=== PATIENT | male | born 1970 | race Caucasian/White ===

== ENCOUNTER 2017-04-10 19:20 | Emergency (ER) | payer BC ==
[2017-04-10] MEDS ORDERED: Sodium Chloride 0.9% 10 ML Syringe FLUSH PRN (19:44)
[2017-04-10] MEDS ORDERED: Sodium Chloride 0.9% 2.5 ML Syringe FLUSH PRN (19:44)
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
[2017-04-10] MEDS ORDERED: Ketorolac 30 MG/ML SDV IVPUSH ONE (19:58)
[2017-04-10 20:30] LABS: CHLORIDE,CL 103 mmol/L (98-110); SODIUM,NA 135 mmol/L (136-146)
[2017-04-10 22:47] VITALS: BP 143/78
--- NOTE | 2017-04-11 12:50 | CR ---
EXAM DATE: 04/10/17 PATIENT'S AGE: 46 Patient: RENAY ESPINOZA Facility: [place], [place] Site . Site : 1970 Study: XRay Extremity Left TIB FIB [id number]/16/2017 8:54:56 PM Ordering Physician: Jaimee Muñoz Final Report: Indication : Pain swelling and redness. Technique: Two views. Impression: Chronic appearing moderately large ossicle off the inferior tip medial malleolus likely chronic avulsion injury. Slightly irregular undulating cortical interface with the medial malleolus. Soft tissue swelling around the ankle is more prominent medially than laterally and nonspecific in appearance and distribution. No ankle joint effusion appreciated. Os peroneum. No fracture of the proximal tibia or fibula. Dictated by Cooper Cabrera MD @ Apr 10 2017 9:00PM (Electronic Signature) Report Signed by Proxy. TABATHA
--- NOTE | 2017-04-11 12:50 | US ---
EXAM DATE: 04/10/17 PATIENT'S AGE: 46 Patient: RENAY ESPINOZA Facility: [place], [place] Site . Site : 1970 Study: US Extremity Left [id number]/16/2017 8:47:44 PM Ordering Physician: Jaimee Muñoz Final Report: INDICATION: Erythema or warmth and pain. Comparison : 05 April 2017 ultrasound TECHNIQUE: A compression venous ultrasound exam was performed of the left lower extremity using marcus-scale imaging, color Doppler and spectral Doppler analysis. FINDINGS: Sonographic imaging of the left lower extremity demonstrates normal compressibility and color Doppler venous blood flow within the common femoral vein, deep femoral vein, and the proximal greater saphenous vein. Within the thigh, the femoral vein is patent and compressible. At a lower level, the popliteal and posterior tibial veins also show normal compressibility and color Doppler venous blood flow. Slightly increased from comparison irregular slightly echogenic complex fluid collection subcutaneous soft tissues left calf now measuring about 3 x 2 cm. Limited imaging of the contralateral groin demonstrates a normal spectral waveform and color Doppler venous blood flow within the right common femoral vein. IMPRESSION: Increased size of left calf hematoma versus less likely abscess. No evidence of deep vein thrombosis within the left lower extremity. Dictated by Cooper Cabrera MD @ Apr 10 2017 8:55PM (Electronic Signature) Report Signed by Proxy. TABATHA
== END 2017-04-10 22:43 | disposition home or self-care (01) ==
LOC: MW.ED 19:20
DX: S80.12XA Contusion of left lower leg, initial encounter (principal); L08.9 Local infection of the skin and subcutaneous tissue, unspecified; W21.03XA Struck by baseball, initial encounter
CPT/HCPCS: 36415; 73590; 80053; 83605; 85025; 85610; 87040; 93971; 96365; 96375; 99284; J1885; J3370; J7050

== ENCOUNTER 2024-06-30 15:53 | Emergency (ER) | payer BC, OTHER ==
[2024-06-30 16:34] VITALS: PULSE 95
[2024-06-30 16:49] LABS: BASOPHILS ABSOLUTE AUTO 0.05 K/uL (0.00-0.20); BASOPHILS PERCENT AUTO 0.6 % (0.0-1.0); EOSINOPHILS ABSOLUTE AUTO 0.04 K/uL (0.00-0.45); EOSINOPHILS PERCENT AUTO 0.5 % (0.0-6.0); HEMATOCRIT 39.9 % (42.0-52.0); HEMOGLOBIN 14.1 g/dL (14.0-18.0); IMMATURE GRAN ABSOLUTE AUTO 0.01 K/uL (0.00-0.05); IMMATURE GRAN PERCENT AUTO 0.1 % (0.0-0.4); LYMPHOCYTES PERCENT AUTO 12.4 % (24.0-44.0); MEAN CORPUSCULAR HEMOGLOBIN 32.5 pg (28.0-32.0); MEAN CORPUSCULAR HGB CONC 35.3 g/dL (32.0-36.0); MEAN CORPUSCULAR VOLUME 91.9 fL (83.0-99.0); MEAN PLATELET VOLUME 9.5 fL (9.4-12.4); MONOCYTES PERCENT AUTO 10.2 % (0.0-8.0); NEUTROPHILS ABSOLUTE AUTO 6.75 K/uL (1.80-7.70); NEUTROPHILS PERCENT AUTO 76.2 % (41.0-71.0); PLATELET COUNT,PLT 141 K/uL (150-400); RED BLOOD CELL COUNT 4.34 M/uL (4.52-5.90); WHITE BLOOD CELL COUNT,WBC 8.85 K/uL (3.9-11.3)
[2024-06-30 17:14] LABS: A/G RATIO 0.7 (0.9-1.6); ALBUMIN 2.9 g/dL (3.4-5.0); BILIRUBIN TOTAL 0.9 mg/dL (0.2-1.0); C-REACTIVE PROTEIN 24.43 mg/dL (<0.3); CALCIUM 8.7 mg/dL (8.5-10.1); CARBON DIOXIDE,CO2 29.5 mmol/L (21.0-32.0); CREATININE 1.6 mg/dL (0.8-1.3); EST CRCL DRUG DOSING (CG) 57.52 mL/min; POTASSIUM,K 3.7 mmol/L (3.5-5.1); PROTEIN TOTAL,TP 6.8 g/dL (6.4-8.2)
[2024-06-30] MEDS: Cephalexin 500 MG Cap PO ONE (19:33)
[2024-06-30] MEDS: Sulfamethoxazole/Trimethoprim 800-160 MG Tab PO ONE (19:33)
[2024-06-30 20:00] VITALS: BP 126/86
== END 2024-06-30 19:41 | disposition home or self-care (01) ==
LOC: MW.ED 15:53
DX: L03.116 Cellulitis of left lower limb (principal)
CPT/HCPCS: 36415; 80053; 85025; 85652; 86140; 93970; 99284; A9270; 99283